=== PATIENT | female | born 1990 | race African-American/Black ===

== ENCOUNTER 2017-05-16 16:53 | Emergency (ER) | payer OTHER ==
[~2017-05-16] VITALS: Ht 154.9 cm; Wt 56.7 kg
[2017-05-16 16:54] VITALS: BP 119/85
[2017-05-16] MEDS ORDERED: ACYCLOVIR 400400 MG PO (17:26)
[2017-05-17 08:56] LABS: HSV PCR SOURCE LIP LESIONS
== END 2017-05-16 17:41 | disposition home or self-care (01) ==
LOC: ER 16:53
PROVIDERS: Physician Assistant
DX: B00.1 Herpesviral vesicular dermatitis (principal); F17.210 Nicotine dependence, cigarettes, uncomplicated

== ENCOUNTER 2017-05-30 08:07 | Emergency (ER) | payer OTHER ==
[~2017-05-30] VITALS: Ht 149.9 cm; Wt 53.5 kg
[~2017-05-30 08:07] MED LIST: ACYCLOVIR 400400 MG PO
[2017-05-30 08:33] LABS: URINE BILIRUBIN NEGATIVE (Negative); URINE BLOOD NEGATIVE (Negative); URINE COLOR YELLOW; URINE GLUCOSE-RANDOM* NEGATIVE (Negative); URINE KETONES NEGATIVE (Negative); URINE LEUKOCYTES-REFLEX NEGATIVE (Negative); URINE PROTEIN (DIPSTICK) NEGATIVE (Negative); URINE UROBILINOGEN 0.2 E.U./dl (0.2-1.0)
[2017-05-30 10:01] VITALS: BP 108/70
[2017-05-31 16:13] LABS: CHLAMYDIA TRACHOMATIS-PCR Negative (Negative); NEISSERIA GONORRHEA-PCR Negative (Negative)
== END 2017-05-30 10:02 | disposition home or self-care (01) ==
LOC: ER 08:07
PROVIDERS: Emergency Medicine
DX: N89.8 Other specified noninflammatory disorders of vagina (principal); F17.210 Nicotine dependence, cigarettes, uncomplicated

== ENCOUNTER 2017-11-09 08:14 | Emergency (ER) | payer OTHER ==
[~2017-11-09] VITALS: Ht 149.9 cm; Wt 59.0 kg
[2017-11-09 08:43] LABS: URINE BILIRUBIN NEGATIVE (Negative); URINE BLOOD NEGATIVE (Negative); URINE CLARITY CLEAR; URINE COLOR YELLOW; URINE GLUCOSE-RANDOM* NEGATIVE (Negative); URINE KETONES NEGATIVE (Negative); URINE LEUKOCYTES-REFLEX 1+ (Negative); URINE NITRITE-REFLEX NEGATIVE (Negative); URINE PROTEIN (DIPSTICK) NEGATIVE (Negative); URINE UROBILINOGEN 0.2 E.U./dl (0.2-1.0)
[2017-11-09 08:54] LABS: SQUAMOUS 4-10 Moderate /LPF (0-3)
[2017-11-09 08:55] LABS: BACTERIA-REFLEX 1-9 Few /HPF (None Seen); CASTS None Seen /LPF (None Seen); CRYSTALS None Seen /LPF (None Seen); MUCUS 4-6 Moderate strn/LPF (None Seen); URINE RBC 0-2 Rare /HPF (0-2); URINE WBC-REFLEX 6-15 Few /HPF (0-5)
[2017-11-09] MEDS ORDERED: KEFLEX500 M1 PO (09:56)
== END 2017-11-09 10:53 | disposition home or self-care (01) ==
LOC: ER 08:14
PROVIDERS: Emergency Medicine
DX: N89.8 Other specified noninflammatory disorders of vagina (principal); N39.0 Urinary tract infection, site not specified; F17.210 Nicotine dependence, cigarettes, uncomplicated

== ENCOUNTER 2018-02-06 15:25 | Emergency (ER) | payer OTHER ==
[~2018-02-06] VITALS: Ht 149.9 cm; Wt 56.7 kg
[~2018-02-06 15:25] MED LIST changes: +KEFLEX500 M1 PO
[2018-02-06 16:06] LABS: URINE BILIRUBIN 1+ (Negative); URINE BLOOD NEGATIVE (Negative); URINE CLARITY CLEAR; URINE COLOR YELLOW; URINE GLUCOSE-RANDOM* NEGATIVE (Negative); URINE KETONES NEGATIVE (Negative); URINE LEUKOCYTES-REFLEX NEGATIVE (Negative); URINE NITRITE-REFLEX NEGATIVE (Negative); URINE PROTEIN (DIPSTICK) 1+ (Negative); URINE SPECIFIC GRAVITY >= 1.030 (1.005-1.035); URINE UROBILINOGEN 0.2 E.U./dl (0.2-1.0)
[2018-02-06 16:08] LABS: ICTOTEST (BILI CONFIRMATORY) Negative (Negative)
[2018-02-06 16:15] LABS: BACTERIA-REFLEX None Seen /HPF (None Seen); CASTS None Seen /LPF (None Seen); CRYSTALS None Seen /LPF (None Seen); MUCUS >6 Heavy strn/LPF (None Seen); SQUAMOUS >10 Many /LPF (0-3); URINE RBC 3-10 Few /HPF (0-2); URINE WBC-REFLEX 6-15 Few /HPF (0-5)
[2018-02-06] MEDS ORDERED: FLAGYL500 MG PO (16:52)
[2018-02-06 17:18] VITALS: BP 113/74
[2018-02-07 14:09] LABS: NEISSERIA GONORRHEA-PCR Negative (Negative)
== END 2018-02-06 17:07 | disposition home or self-care (01) ==
LOC: ER 15:25
PROVIDERS: Physician Assistant
DX: N76.0 Acute vaginitis (principal); B96.89 Other specified bacterial agents as the cause of diseases classified elsewhere; F17.210 Nicotine dependence, cigarettes, uncomplicated

== ENCOUNTER 2018-04-25 08:00 | Emergency (ER) | payer OTHER ==
[~2018-04-25] VITALS: Ht 149.9 cm; Wt 56.7 kg
[~2018-04-25 08:00] MED LIST changes: +FLAGYL500 MG PO
[2018-04-25] MEDS ORDERED: DIFLUCAN150 MG PO (08:34)
[2018-04-25] MEDS ORDERED: FLAGYL500 MG PO (08:34)
[2018-04-25 08:53] VITALS: BP 112/65
== END 2018-04-25 19:02 | disposition home or self-care (01) ==
LOC: ER 08:00
DX: N76.0 Acute vaginitis (principal); B35.3 Tinea pedis

== ENCOUNTER 2018-12-17 11:27 | Emergency (ER) | payer OTHER ==
[~2018-12-17] VITALS: Ht 149.9 cm; Wt 56.7 kg
[~2018-12-17 11:27] MED LIST changes: +DIFLUCAN150 MG PO
[2018-12-17 11:54] LABS: URINE BILIRUBIN NEGATIVE (Negative); URINE BLOOD NEGATIVE (Negative); URINE CLARITY CLEAR; URINE COLOR YELLOW; URINE GLUCOSE-RANDOM* NEGATIVE (Negative); URINE KETONES TRACE (Negative); URINE LEUKOCYTES-REFLEX NEGATIVE (Negative); URINE NITRITE-REFLEX NEGATIVE (Negative); URINE PROTEIN (DIPSTICK) NEGATIVE (Negative); URINE UROBILINOGEN 0.2 E.U./dl (0.2-1.0)
[2018-12-17 12:14] LABS: SSA (PROTEIN CONFIRMATORY) NEGATIVE (Negative)
[2018-12-17] MEDS ORDERED: FLAGYL500 M1 PO (12:16)
[2018-12-17 12:41] VITALS: BP 125/71
== END 2018-12-17 12:42 | disposition home or self-care (01) ==
LOC: ER 11:27
PROVIDERS: Physician Assistant
DX: N76.0 Acute vaginitis (principal)

== ENCOUNTER 2019-01-17 17:22 | Emergency (ER) | payer OTHER ==
[~2019-01-17] VITALS: Ht 149.9 cm; Wt 54.4 kg
[~2019-01-17 17:22] MED LIST changes: +FLAGYL500 M1 PO
[2019-01-17 18:41] VITALS: BP 118/78
== END 2019-01-17 18:30 | disposition home or self-care (01) ==
LOC: ER 17:22
DX: N93.8 Other specified abnormal uterine and vaginal bleeding (principal); Z32.02 Encounter for pregnancy test, result negative

== ENCOUNTER 2020-03-14 14:21 | Emergency (ER) | payer OTHER ==
[~2020-03-14] VITALS: Ht 149.9 cm; Wt 56.7 kg
[2020-03-14 14:32] LABS: URINE BILIRUBIN NEGATIVE (Negative); URINE BLOOD NEGATIVE (Negative); URINE CLARITY CLEAR; URINE COLOR YELLOW; URINE GLUCOSE-RANDOM* NEGATIVE (Negative); URINE KETONES NEGATIVE (Negative); URINE LEUKOCYTES-REFLEX NEGATIVE (Negative); URINE NITRITE-REFLEX POSITIVE (Negative); URINE PROTEIN (DIPSTICK) NEGATIVE (Negative)
[2020-03-14 14:36] LABS: BACTERIA-REFLEX >30 Many /HPF (None Seen); SQUAMOUS 4-10 Moderate /LPF (0-3); URINE WBC-REFLEX 0-5 Rare /HPF (0-5)
[2020-03-14] MEDS ORDERED: PHENAZOPYRIDIN200 M2 PO (15:04)
[2020-03-14] MEDS ORDERED: KEFLEX500 M1 PO (15:04)
[2020-03-14 15:30] VITALS: BP 119/62
== END 2020-03-14 15:30 | disposition home or self-care (01) ==
LOC: ER 14:21
PROVIDERS: Physician Assistant
DX: N39.0 Urinary tract infection, site not specified (principal); N89.8 Other specified noninflammatory disorders of vagina

== ENCOUNTER 2020-04-28 16:25 | Emergency (ER) | payer OTHER ==
[~2020-04-28] VITALS: Ht 149.9 cm; Wt 52.2 kg
[~2020-04-28 16:25] MED LIST changes: +PHENAZOPYRIDIN200 M2 PO
[2020-04-28 16:46] LABS: URINE BILIRUBIN NEGATIVE (Negative); URINE BLOOD NEGATIVE (Negative); URINE CLARITY CLEAR; URINE COLOR YELLOW; URINE GLUCOSE-RANDOM* NEGATIVE (Negative); URINE KETONES NEGATIVE (Negative); URINE LEUKOCYTES-REFLEX NEGATIVE (Negative); URINE NITRITE-REFLEX NEGATIVE (Negative); URINE PROTEIN (DIPSTICK) NEGATIVE (Negative); URINE SPECIFIC GRAVITY 1.015 (1.005-1.035); URINE UROBILINOGEN 0.2 E.U./dl (0.2-1.0)
[2020-04-28] MEDS ORDERED: METROGEL-VAGINA70 GM VAG (18:07)
[2020-04-28] MEDS ORDERED: CLEOCIN HCL150 MG PO (18:16)
[2020-04-28 18:51] VITALS: BP 112/74
== END 2020-04-28 18:54 | disposition home or self-care (01) ==
LOC: ER 16:25
PROVIDERS: Physician Assistant
DX: N89.8 Other specified noninflammatory disorders of vagina (principal); M54.5 Low back pain; Z79.899 Other long term (current) drug therapy

== ENCOUNTER 2021-07-08 17:18 | Emergency (ER) | payer OTHER ==
[~2021-07-08] VITALS: Ht 149.9 cm; Wt 58.5 kg
[~2021-07-08 17:18] MED LIST changes: +CLEOCIN HCL150 MG PO; +METROGEL-VAGINA70 GM VAG
[2021-07-08 17:52] LABS: URINE BILIRUBIN NEGATIVE (Negative); URINE BLOOD NEGATIVE (Negative); URINE CLARITY CLEAR; URINE COLOR YELLOW; URINE GLUCOSE-RANDOM* NEGATIVE (Negative); URINE KETONES NEGATIVE (Negative); URINE LEUKOCYTES-REFLEX NEGATIVE (Negative); URINE NITRITE-REFLEX NEGATIVE (Negative); URINE PROTEIN (DIPSTICK) NEGATIVE (Negative); URINE UROBILINOGEN 0.2 E.U./dl (0.2-1.0)
[2021-07-08] MEDS ORDERED: PHENAZOPYRIDIN200 M2 PO (18:45)
[2021-07-08] MEDS ORDERED: MACROBID 100 M100 M1 PO (18:45)
[2021-07-08] MEDS ORDERED: DOXYCYCLINE 10100 MG PO (18:46)
[2021-07-08 19:01] VITALS: BP 114/70
== END 2021-07-08 19:06 | disposition home or self-care (01) ==
LOC: ER 17:18
PROVIDERS: Physician Assistant
DX: R30.0 Dysuria (principal); M54.9 Dorsalgia, unspecified